=== PATIENT | female | born 1970 | race Caucasian/White ===

== ENCOUNTER 2016-11-18 03:30 | Observation (INO) | payer BC ==
--- NOTE | ~2016-11-18 | HP ---
History And Physical [facility] [id number] [place]. [address] NAME: ZORAIDA FRANKEL : [birth year] STATUS : ADM IN [facility]#: [id number] AGE: 45 ADM/REG DATE : 11/18/16 MR#: [id number] REPORT SERV DATE: 11/19/16 DICTATED BY: SADAF MARIE DATE: 11/18/16 REPORT STATUS : Draft TRANSCRIBED BY: MODL DATE: 11/18/16 DATE OF ADMISSION: 11/18/2016 ATTENDING: Eli Marie M.D. CHIEF COMPLAINT: Abdominal pain. HISTORY OF PRESENT ILLNESS: A 45-year-old female with a history of low anterior resection performed by Dr. Marie with subsequent ventral hernia. This hernia has been reducible. The patient reports a five-day history of nausea and vomiting and general crampy abdominal pain. The patient's last bowel movement was approximately five days ago, and the patient reports decreased flatus during this time. She denies fevers or chills. 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 Reports urine output has been normal. ALLERGIES: CODEINE, FLAGYL. PAST MEDICAL HISTORY: Depression, anxiety, hypertension, history of nephrolithiasis status post multiple interventions as well as partial nephrectomy, and bladder exstrophy status post repair. MEDICATIONS: Per medication reconciliation form. PAST SURGICAL HISTORY: Bladder exstrophy repair with Kock pouch, partial nephrectomy, lap aramis, low anterior resection. FAMILY HISTORY: Noncontributory on this case. SOCIAL HISTORY: No alcohol use. No tobacco use currently. PHYSICAL EXAMINATION: VITAL SIGNS: Temperature 98.1, blood pressure 159/80, heart rate 88, respiratory rate 20, pulse oximetry 95% on room air. GENERAL: No acute distress. Alert and oriented x3. Obese. HEENT: Normocephalic, atraumatic. Pupils are equal, round, and reactive to light and accommodation. Extraocular muscles are intact. Moist oral mucosa. NG tube in place with bilious output. NECK: Supple. Nontender. CARDIOVASCULAR: Regular rate and rhythm. PULMONARY: Clear to auscultation bilaterally. ABDOMEN: Soft, distended. Tender to palpation in the upper abdomen. No peritoneal signs. EXTREMITIES: Moves all extremities. 2+ radial pulses bilaterally. LABORATORY STUDIES: White blood cell count of 17.4 with 76% polymorphonuclear cells, hematocrit 41, platelets 436. BMP is grossly normal. LFTs are within normal limits. Urinalysis was positive. Culture was pending. History And Physical [address] [place]. [address] NAME: ZORAIDA FRANKEL : [birth year] STATUS : ADM IN PAT#: [id number] AGE: 45 ADM/REG DATE : 11/18/16 MR#: [id number] REPORT SERV DATE: 11/19/16 DICTATED BY: SADAF MARIE DATE: 11/18/16 REPORT STATUS : Draft TRANSCRIBED BY: MODL DATE: 11/18/16 RADIOLOGY: CT scan of the abdomen and pelvis demonstrated umbilical hernia containing bowel with surrounding dilated loop with fecalized stool as well as evidence of past low anterior resection. ASSESSMENT AND PLAN: A 45-year-old female with likely small bowel obstruction secondary to incarcerated ventral hernia. 1. We will attempt reduction. The patient may require operative repair if unable to reduce. 2. Recommend NG tube decompression and bowel rest. 3. Symptomatic management. DICTATED BY: MD BETY Bauer/ESTRELLA Eli Marie M.D. / [id number] CC: Yasemin Fofana M.D. William Cockerham, M.D.
[~2016-11-18 03:30] MED LIST: ASAB PO; AZOR1 TAB PO; COZAAR100 MG PO; HORMONE PELLETS; KLONO1 PO; LORT7 PO; MIDOL PO; NEXIUM40 PO; NO LIST; NORV5 PO; PERCOCET1 TA2 PO; PRAVAC PO; PRAVACHOL40 MG PO; PRISTIQ50 MG PO; PROZAC40 MG PO; QUASENSE OR; QUASENSE PO; SEROQUEL50 MG PO; TEG200 PO; VITAMIN B-122500 MCG SL; VITAMIN D1000 UNI1 PO; WELLXL150 PO; X5 PO; XANAX1 MG PO
[2016-11-18] MEDS ORDERED: AMB10 PO (04:20)
[2016-11-18] MEDS ORDERED: GLUCPH PO (04:21)
[2016-11-18] MEDS ORDERED: PROMETRIUM200 MG PO (04:23)
[2016-11-19 07:50] LABS: BASOPHILS 0.1 %; BASOPHILS ABSOLUTE 0.01 10/3/uL (0.0-0.16); EOSINOPHILS 2.5 %; EOSINOPHILS ABSOLUTE 0.18 10/3/uL (0.0-0.53); HEMATOCRIT 37.5 % (36.0-48.0); HEMOGLOBIN 11.7 g/dL (12.0-16.0); IMMATURE GRANULOCYTES 0.3 %; IMMATURE GRANULOCYTES ABSOLUTE 0.02 10/3/uL (0.0-0.11); LYMPHOCYTES ABSOLUTE 2.16 10/3/uL (0.67-4.30); MEAN CORPUS HGB CONC 31.2 g/dL (32.0-36.0); MEAN CORPUSCULAR HEMOGLOB 25.5 pg (26.0-34.0); MEAN CORPUSCULAR VOLUME 81.7 fL (80-100); MEAN PLATELET VOLUME 9.4 fL (9.2-13.0); MONOCYTES 5.7 %; MONOCYTES ABSOLUTE 0.41 10/3/uL (0.21-1.20); NEUTROPHILS 61.4 %; NEUTROPHILS ABSOLUTE 4.42 10/3/uL (2.02-8.40); PLATELET COUNT 325 10/3/uL (150-400); RBC DISTRIBUTION WIDTH 14.9 % (12.0-16.0); RED CELL COUNT 4.59 10/6/uL (4.0-5.6)
[2016-11-19 07:54] LABS: MANUAL DIFF NO %; WHITE BLOOD CELLS 7.2 10/3/uL (4.5-10.5)
[2016-11-19 08:03] LABS: CALCIUM, SERUM 8.6 MG/DL (8.5-10.4); CHLORIDE, SERUM 105 MMOL/L (96-112); CO2 (CARBON DIOXIDE) 24 MMOL/L (24-34); CREATININE 0.77 MG/DL (0.55-1.02); GFR AFRICAN AMERICAN 108 ML/MIN (>=60); GFR NON AFRICAN AMERICAN 93 ML/MIN (>=60); GLUCOSE, SERUM 118 MG/DL (60-99); POTASSIUM, SERUM 3.5 MMOL/L (3.5-5.3); SODIUM, SERUM 137 MMOL/L (135-148)
[2016-11-19 08:04] LABS: BUN (BLOOD UREA NITROGEN) 9 MG/DL (6-23)
[2017-02-28] MEDS ORDERED: ALEVE220 MG PO (15:58)
[2017-02-28] MEDS ORDERED: MELATONIN10 M2 PO (15:58)
== END 2016-11-19 14:03 | disposition home or self-care (01) ==
LOC: 5SO 03:30
PROVIDERS: Colon & Rectal Surgery
DX: K43.6 Other and unspecified ventral hernia with obstruction, without gangrene (principal); I10 Essential (primary) hypertension; E78.00 Pure hypercholesterolemia, unspecified; K21.9 Gastro-esophageal reflux disease without esophagitis; K44.9 Diaphragmatic hernia without obstruction or gangrene; F32.9 Major depressive disorder, single episode, unspecified; F41.9 Anxiety disorder, unspecified; Z88.5 Allergy status to narcotic agent; Z88.8 Allergy status to other drugs, medicaments and biological substances; Z87.442 Personal history of urinary calculi; Z90.5 Acquired absence of kidney; Z98.890 Other specified postprocedural states; Z90.49 Acquired absence of other specified parts of digestive tract
CPT/HCPCS: 74000; 74250; 80048; 82962; 85025; 96374; 96375; 96376; A9270-GY; C9113; G0378; J1170; J2405; J2550

== ENCOUNTER 2017-03-05 06:04 | Day surgery (SDC) | payer BC ==
--- NOTE | ~2017-03-05 | EGD ---
EGD REPORT [facility] [address] [place] [address] NAME: ZORAIDA COX : 70 STATUS : REG [facility]#: [id number] AGE: 46 ADM/REG DATE : 03/05/17 MR#: [id number] REPORT SERV DATE: 03/05/17 DICTATED BY: BRUNO VELAZQUEZ DATE: 03/05/17 REPORT STATUS : Draft TRANSCRIBED BY: [employer] DATE: 03/05/17 [facility] Patient Name: Zoraida Cox Date of : 1970 Attending MD: BRUNO VELAZQUEZ, Procedure Date No Time: 03/05/2017 Procedure: Colonoscopy Indications: High risk colon cancer surveillance: Personal history of colon cancer Referring MD: HARDEEP RIVERA, SADAF MARIE MD Medicines: Monitored Anesthesia Care Complications: No immediate complications. Estimated blood loss: None. Procedure: Pre-Anesthesia Assessment: - ASA Grade Assessment: III - A patient with severe systemic disease. After I obtained informed consent, the scope was passed under direct vision. Throughout the procedure, the patient's blood pressure, pulse, and oxygen saturations were monitored continuously. The CF [id number] was introduced through the anus and advanced to the cecum, identified by appendiceal orifice and ileocecal valve. The colonoscopy was performed without difficulty. The ileocecal valve, appendiceal orifice and rectum were photographed. The quality of the bowel preparation was adequate. Findings: The perianal exam was abnormal. Findings include a skin tag. There was evidence of a prior end-to-end colo-rectal anastomosis in the rectum. This was patent. This was characterized by healthy appearing mucosa. A sessile polyp was found in the transverse colon. The polyp was 8 mm in size. The polyp was removed with a hot snare. Resection and retrieval were complete. Verification of patient identification for the specimen was done. Estimated blood loss was minimal. A sessile polyp was found in the transverse colon. The polyp was 4 mm in size. The polyp was removed with a cold snare. Resection and retrieval were complete. Verification of patient identification for the specimen was done. Estimated blood loss was minimal. A sessile polyp was found in the sigmoid colon. The polyp was 7 mm in size. The polyp was removed with a hot snare. Resection and retrieval were complete. Verification of patient identification for the specimen was done. Estimated blood loss was minimal. The exam was otherwise without abnormality. EGD REPORT [address] [place]. [address] NAME: ZORAIDA COX : 70 STATUS : REG [facility] PAT#: [id number] AGE: 46 ADM/REG DATE : 03/05/17 MR#: [id number] REPORT SERV DATE: 03/05/17 DICTATED BY: BRUNO VELAZQUEZ DATE: 03/05/17 REPORT STATUS : Draft TRANSCRIBED BY: Sol[place]i DATE: 03/05/17 Impression: - Perianal skin tag found on perianal exam. - Patent end-to-end colo-rectal anastomosis. - One 8 mm polyp in the transverse colon. Resected and retrieved. - One 4 mm polyp in the transverse colon. Resected and retrieved. - One 7 mm polyp in the sigmoid colon. Resected and retrieved. - The examination was otherwise normal. Recommendation: - Patient has a contact number available for emergencies. The signs and symptoms of potential delayed complications were discussed with the patient. Return to normal activities tomorrow. Written discharge instructions were provided to the patient. - Return to previous diet. - Continue present medications. - Await pathology results. - Repeat colonoscopy in 1 year for surveillance. Would plan 48 hour clear liquid as there was a fair amount of solid debris. Procedure Code(s): --- Professional --- 70699, Colonoscopy, flexible, proximal to splenic flexure; with removal of tumor(s), polyp(s), or other lesion(s) by snare technique Diagnosis Code(s): --- Professional --- K64.4, Residual hemorrhoidal skin tags Z98.0, Intestinal bypass and anastomosis status D12.5, Benign neoplasm of sigmoid colon D12.3, Benign neoplasm of transverse colon Z85.038, Personal history of other malignant neoplasm of large intestine CPT copyright 2013 [employer]. All rights reserved. The codes documented in this report are preliminary and upon pattern finisher review may be revised to meet current compliance requirements. BRUNO VELAZQUEZ, 03/05/2017 8:19 AM Number of Addenda: 0 Note Initiated On: 03/05/2017 7:34 AM EGD REPORT [facility] [address] [place] [address] NAME: ZORAIDA COX : 70 STATUS : REG [facility] PAT#: [id number] AGE: 46 ADM/REG DATE : 03/05/17 MR#: [id number] REPORT SERV DATE: 03/05/17 DICTATED BY: BRUNO VELAZQUEZ DATE: 03/05/17 REPORT STATUS : Draft TRANSCRIBED BY: [employer] DATE: 03/05/17 Scope Withdrawal Time 0 hours 26 minutes 7 seconds [address] [address]
[~2017-03-05 06:04] MED LIST changes: +ALEVE220 MG PO; +AMB10 PO; +GLUCPH PO; +MELATONIN10 M2 PO; +PROMETRIUM200 MG PO
== END 2017-03-05 23:59 | disposition home or self-care (01) ==
LOC: DMU 06:04
PROVIDERS: Internal Medicine Gastroenterology
PROC: 0DBN8ZX Excision of Sigmoid Colon, Via Natural or Artificial Opening Endoscopic, Diagnostic (ICD-10-PCS; 2017-03-05)
PROC: 0DBL8ZX Excision of Transverse Colon, Via Natural or Artificial Opening Endoscopic, Diagnostic (ICD-10-PCS; principal; 2017-03-05 07:30)
DX: Z12.11 Encounter for screening for malignant neoplasm of colon (principal); D12.3 Benign neoplasm of transverse colon; D12.5 Benign neoplasm of sigmoid colon; K64.4 Residual hemorrhoidal skin tags; E66.01 Morbid (severe) obesity due to excess calories; I10 Essential (primary) hypertension; G47.33 Obstructive sleep apnea (adult) (pediatric); K21.9 Gastro-esophageal reflux disease without esophagitis; Z88.5 Allergy status to narcotic agent; Z98.0 Intestinal bypass and anastomosis status; Z85.038 Personal history of other malignant neoplasm of large intestine; Z88.8 Allergy status to other drugs, medicaments and biological substances; Z79.899 Other long term (current) drug therapy; Z98.890 Other specified postprocedural states; Z90.49 Acquired absence of other specified parts of digestive tract
CPT/HCPCS: 84703; 88305